=== PATIENT | female | born 1995 | race Caucasian/White ===

== ENCOUNTER 2023-01-07 12:27 | Emergency (ER) | payer BC, SELFPAY ==
[2023-01-07 12:33] VITALS: BP 133/84; PULSE 82; RESP 18; TEMP 36.9; O2SAT 100
--- NOTE | 2023-01-07 12:34 | ED.URI ---
HPI - URI/Sore Throat General Chief Complaint: Upper Respiratory Infection Stated Complaint: Cold Symptoms Source: patient and RN notes reviewed Mode of arrival: ambulatory Limitations: no limitations History of Present Illness HPI Narrative: 27-year-old female presents with concern for cough, nasal congestion, sinus pressure, body aches and fatigue that started 5 days ago. Reports she start taking cough medicine without relief. She reports her daughter was sick but has gotten better. She reports she had a COVID test at home that was negative MD elicited complaint: cough Related Data Allergies Allergy/AdvReac Type Severity Reaction Status Date / Time No Known Allergies Allergy Verified 01/07/23 12:40 Review of Systems Review of Systems: CONSTITUTIONAL: Reports malaise. Denies chills, sweats, or fever. EYES: Denies visual changes, redness, or discharge. ENT: Reports rhinorrhea, congestion, sinus pain. Denies otalgia and sore throat. CARDIOVASCULAR: Denies chest pain, palpitations, or edema. RESPIRATORY: Reports cough. Denies dyspnea. GASTROINTESTINAL: Denies abdominal pain, nausea, vomiting, diarrhea SKIN: Denies rash or itching. MUSCULOSKELETAL: Reports myalgia. NEUROLOGIC: Denies headache. All systems reviewed & are unremarkable except as noted in HPI and below PMFSH Comments At time of signature, agree with nursing past medical, surgical, social and family history. There is no relevant family history pertinent to the presenting complaint Exam Narrative: GENERAL: Well-appearing, well-nourished, and in no acute distress. HEAD: Normocephalic EYES: PERRLA, conjunctivae clear ENT: Nares clear, turbinates edematous and erythematous, clear discharge. Mucous membranes moist. TM pearly mccall with sharp light reflex bilaterally; no tragal tenderness. Oropharynx erythematous without lesions. Tonsils not enlarged and without exudate, no drooling, no hoarseness, no trismus, uvula midline. NECK: Supple. No lymphadenopathy CHEST: Clear to auscultation, breath sounds equal. No wheezing, rhonchi, rales, or stridor. No respiratory distress, speaks in full sentences. Cough noted HEART: Regular rate and rhythm. No murmur heard. SKIN: Warm, dry, no rash. NEURO: Alert and oriented x3. PSYCH: Normal mood and affect Course Course Emergency Course: Patient is aware of diagnosis, understands and agrees to treatment plan. Anticipatory guidance given. Patient agrees to follow-up as directed and is aware of reasons to seek care at the emergency department. Portions of this record may have been created with voice recognition software Level of Care: Express Care Visit Vital Signs Vital signs: Reviewed. MDM - URI/Sore Throat MDM Narrative Medical decision making narrative: Differential diagnosis considered: Khan virus, strep pharyngitis, allergic rhinitis, upper respiratory tract infection, sinusitis, rhinosinusitis, nasopharyngitis. viral pharyngitis, otitis media, otitis externa, pneumonia, bronchitis, viral cough syndrome, viral syndrome, and influenza. Exam findings show no acute concerns or changes; patient is non-toxic appearing and is in no distress. Patient is appropriate for outpatient treatment and follow-up. Lab Data Attestation: I reviewed the patient's lab results. Critical Care Time Critical Care Time Critical Care Time: No Discharge Plan Discharge Clinical Impression: Acute streptococcal pharyngitis Patient Disposition: Home, Self-Care Condition: Stable Additional Instructions: -Take the medication as prescribed. Throw away the toothbrush after 24hours of antibiotic. -Eat and drink things that are easy to swallow, like tea or soup, or popsicles to suck on. -Oral rinses such as: Salt water gargles and/or may use topical anesthetic (eg. Chloraseptic spray) or lozenges to relieve dryness or throat pain). -Take Tylenol and ibuprofen as needed for pain and fever as directed. -Frequent hand washing or hand collazo
== END 2023-01-07 13:09 | disposition home or self-care (01) ==
PROVIDERS: Emergency Provider Nurse Practitioner; PCP Emergency Medicine
DX: J02.0 Streptococcal pharyngitis (principal)
CPT/HCPCS: 87880; 99213; G0463

== ENCOUNTER 2023-04-14 15:53 | Outpatient (CLI) | payer BC, SELFPAY ==
[2023-04-14 16:07] LABS: Hemoglobin 14.1 g/dL (12.0-15.0)
[2023-04-18 04:56] LABS: FSH 4.5 mIU/mL (***); LH 5.7 mIU/mL (***)
[2023-04-19 09:50] LABS: Testosterone Total 37 ng/dL (2-45)
== END 2023-04-14 15:54 | disposition home or self-care (01) ==
LOC: ANHLAB 15:55
PROVIDERS: PCP Emergency Medicine; Visit Provider Student in an Organized Health Care Education/Training Program
DX: N93.9 Abnormal uterine and vaginal bleeding, unspecified (principal)
CPT/HCPCS: 36415; 83001; 83002; 84403; 84443; 85014; 85018

== ENCOUNTER 2025-09-26 07:53 | Outpatient (CLI) | payer BC, SELFPAY ==
--- OUTSIDE RECORDS SUMMARY | 2020-11-15 09:30 | XMS_ITS | Continuity of Care Document ---
Author Organization [facility] Address [address] [place] [address] Phone Care Team Providers Care Supervisor Tunnel Heading Name Role Phone Harjinder Montana MD Unavailable Unavailable Allergies, Adverse Reactions, Alerts Substance Reaction Status Criticality No Known Allergies Active No Inform ation Medications Medication Instructions Dosage Effective Dates (start - stop) Status Comments Percocet 5 mg-325 mg tablet take 1 tablet by oral route every 8 to 12 hours as needed - Active gabapentin 100 mg capsule take 1 capsule by oral route QHS for 1week, then BID 1 week, then TID There after - Active PREVIFEM (unknown strength) Not Available - Active Procedures Procedure Date POSTOP FOLLOW-UP VISIT OFFICE/OUTPATIENT VISIT EST OFFICE/OUTPATIENT VISIT NEW OFFICE/OUTPATIENT VISIT NEW OFFICE/OUTPATIENT VISIT EST OFFICE/OUTPATIENT VISIT NEW Advance Directives Directive Yes / No Effective Date File Name No Information Encounters Encounter Description Practice Location Reason(s) For Visit Diagnoses Date Provider Providers Copied on Encounter [facility], [address], [address], [place] tel:[phone] [facility] Right leg pain 0 Rubén Grande. [address] [facility], [place], [place], [address]. tel:[phone] [facility], [address] [facility] [address], [address], [place] tel:[phone] [facility] Postlaminectom y syndrome, not elsewhere classifiedNeur opathy of right peroneal nerve 0 Darron Rosenberg. [address] [facility] [address], [place], [place], [address]. tel:[phone] [facility], [address] [facility] [address], [place], [address], [place] tel:[phone] [facility] Spondylosis of lumbosacral region without myelopathy or radiculopathyP ostlaminectomy syndrome, not elsewhere classified 0 Darron Rosenberg. [address] [facility] [address], [place], [place], [id number]. tel:[phone] OFFICE/OUTPA TIENT VISIT [facility], [address] [facility] [address], [place], [address], [place] tel:[phone] [facility] Spondylosis of lumbosacral region without myelopathy or radiculopathyR adiculopathy, lumbar regionPostlami nectomy syndrome, not elsewhere classified 0 Darron Rosenberg. [address] [facility], [place], [place], [address]. tel:[phone] OFFICE/OUTPA TIENT VISIT [facility], [address] [facility] [address], [place], [address], [place] tel:[phone] [facility] Body mass index (BMI) 33.0-33.9, adultSpondylos is of lumbar region without myelopathy or radiculopathyS pondylosis of lumbosacral region without myelopathy or radiculopathyP ostlaminectomy syndrome, not elsewhere classified 0 Darron Rosenberg. [address], [place], [place], [address]. tel:[phone] OFFICE/OUTPA TIENT VISIT [facility], [address] [facility] [address], [place], [address], [place] tel:[phone] [facility] Sciatica, left side 5 Ender Sheriff. [address] [place], [place], [address]. tel:[phone] OFFICE/OUTPA TIENT VISIT [facility], [address] [place] [address], [address], [place] tel:[phone] [facility] BACK FOLLOW UP (chief complaint) DOING MUCH BETTER (chief complaint) Low back painPain in thoracic spineSpinal enthesopathy Wilfredo-0 5-201 4 Arturopina Godfrey. [address] [place], [place], [address]. tel:[phone] [facility], [address] [place] [address], [address], [place] tel:[phone] [facility] Low back painLumbosacra l spondylosisSpi nal enthesopathySc iaticaPain in thoracic spine May-0 8-201 4 Arturopina Godfrey. [address] [place], [place], [address]. tel:[phone] [facility], [address] [place] [address], [address], [place] tel:[phone] [facility] Spinal enthesopathyLu mbosacral spondylosisLow back pain Apr-1 0-201 4 Arturo Godfrey. [address] [place], [place], [address]. tel:[phone] [facility], [address] [place] [address], [address], [place] tel:[phone] [facility] SciaticaLow back pain Apr-0 9-201 4 Arturo Godfrey. [address] [place], [place], [address]. tel:[phone] OFFICE/OUTPA TIENT VISIT [facility], [address] [place] [address], [address], [place] tel:[phone] [facility] Low back painSciatica Mar-1 3-201 4 Arturo Godfrey. [address] [place], [place], [address]. tel:[phone] Family History Family Member Type Diagnosis Age At Onset Father Problem hypertension Payers Payer name Insurance type Covered libertarian ID Rubi bridges(s) [facility] Choice/Choice Plus E2 [id number] Social History Type Description Quantity Date Captured Comments Alcohol Use Details Unknown Caffeine Use Details Unknown Tobacco Use Status No Information Smoking Status Never smoker Sex Female Chief Complaint And Reason For Visit No Information Reason For Referral Reason For Referral No Information Plan Of Treatment Date Type Action Status Goal Lifestyle education regardin g diet completed Referral Ordered: INJ FORAMEN EPIDURAL L/S RT spine, lumbar Appointment date/timeframe: 07/10/2020 ordered Referral Ordered: RADEX SPI LUMBOSAC COMPL W/BENDING VIEWS ordered History Of Present Illness Encounter Date Complaint History Of Prese nt Illness No Information Functional Status Date Functional Assessmen t No Information Instructions Date Instruction Additional Infor mation Lifestyle education regarding di et Related to Body mass index (BMI) 33.0-33.9, adult Giving encouragement to exercise Related to Body mass index (BMI) 33.0-33.9, adult Physical activity counseling Rel ated to Dietary Surveillance Counseling Physical activity counseling Rel ated to Dietary Surveillance Counseling Physical activity counseling Rel ated to Dietary Surveillance Counseling Assessments Type Assessment Date assessment Right leg pain Patient Care Teams Name Effective Dates (start - stop) Status Members No Information
--- OUTSIDE RECORDS SUMMARY | 2025-09-26 08:04 | XMS_ITS | Clinical Summary ---
Author Organization [facility] Address [address] [place] [address] Phone Care Team Providers Care Newspaper Distributor Supervisor Name Role Phone Unavailable Primary Care Provider Unavailabl e Allergies No known active allergies Medications cephALEXin (KEFLEX) 500 mg capsule Take 500 mg by mouth 2 times daily. Active neomycin sulf/bacitracin /poly (NEOMYCIN-BACIT RACIN-POLYMYXIN OP) by Ophthalmic route. Placed 3-4 drops in LEFT 3-4 TIMES PER DAY Active oxyCODONE-aceta minophen (PERCOCET) 5-325 mg tabletIndicatio ns:DDD (degenerative disc disease), lumbar Take 1 Tablet by mouth every 4 hours as needed for severe pain. Max Daily Amount: 6 Tablets 42 Tablet 10/13/2021 1:21 PM PUMPING PLANT OPERATOR 1 Active diazePAM (Valium) 5 mg tabletIndicatio ns:DDD (degenerative disc disease), lumbar Take 1 Tablet (5 mg) by mouth every 6 hours as needed for Spasm. 42 Tablet 10/13/2021 1:21 PM PUMPING PLANT OPERATOR 1 Active Active Problems Problem Noted Date Diagnosed Date DDD (degenerative disc disease), lumbar 10/04/20 21 Encounters Date Type Department Care Team Description 08/15/2025 External Device Data [facility] ABSTRACTION Provider, Abstract 07/18/2025 External Device Data [facility] ABSTRACTION Provider, Abstract 07/05/2025 External Device Data [facility] ABSTRACTION Provider, Abstract from Last 3 Months Social History Tobacco Use Types Packs/Day Years Used Date Smoking Tobacco: Never Smokeless Tobacco: Never Alcohol Use Standard Drinks/Week Comments Yes 2 (1 standard drink = 0.6 oz pur e alcohol) Comments No Sex and Gender Information Value Date Recorded Sex Assigned at Not on file Legal Sex Female 5:05 AM PUMPING PLANT OPERATOR Gender Identity Not on file Sexual Orientation Not on file Last Filed Vital Signs Vital Sign Reading Time Taken Comments Blood Pressure 110/65 10/13/2021 12:05 PM PUMPING PLANT OPERATOR Pulse 89 10/13/2021 12:05 PM PUMPING PLANT OPERATOR Temperature 36.7 C (98.1 F) 10/13/2021 12:05 PM PUMPING PLANT OPERATOR Respiratory Rate 16 10/13/2021 12:05 PM PUMPING PLANT OPERATOR Oxygen Saturation 95% 10/13/2021 12:05 PM PUMPING PLANT OPERATOR Inhaled Oxygen Concentration - - Weight 91.6 kg (202 lb) 10/11/2021 5:48 AM PUMPING PLANT OPERATOR Height 167.6 cm (5' 6) 10/11/2021 5:48 AM PUMPING PLANT OPERATOR Body Mass Index 32.6 10/11/2021 5:48 AM PUMPING PLANT OPERATOR Plan of Treatment Health Maintenance Due Date Last Done Comments DTAP/TDAP/TD VACCINES (1 - Tdap) 2013 HEPATITIS B VACCINES (1 of 3 - 19+ 3-dose series) 09/30 HPV/Cotest (21-29) 2015 HPV VACCINES (1 - 3-dose SCDM series) 2021 CERVICAL CANCER SCREENING 2024 HPV/Cotest (30-65) 2024 PAP SMEAR 2024 INFLUENZA VACCINE (#1) 2025 Medical Devices Implanted Type Area Alteration Manager Device Identifier Shelf Expiration Date Model / Serial / Lot Infuse Protein Kit Lg [id number] - [id number] Implanted:Qt y: 1 on 10/11/2021 by Jaziel Handley MD at [facility] Biological N/A: Spine Lumbar MEDTRONIC- SOFAMOR DANEK [id number] 02/27/2023 [id number] / / [id number] Clip Ligating Horizon Med Ti [id number] - Csc - [id number] Implanted:Qt y: 1 on 10/11/2021 by Austin Moralez MD at [facility] Clip N/A: Abdomen TELEFLEX- WECK CLOSURE SYS 12/04/2025 [id number] / / [id number] Clip Ligating Horizon Med Ti [id number] - Csc - [id number] Implanted:Qt y: 1 on 10/11/2021 by Austin Moralez MD at [facility] Clip N/A: Abdomen TELEFLEX- WECK CLOSURE SYS 12/04/2025 [id number] / / [id number] Hemostatic Surgiflo 8ml W/Thrombin 2994 - [id number] Implanted:Qt y: 1 on 04/04/2020 by Jaziel Handley MD at [facility] Hemostatic Left: Spine Lumbar J&J- ETHICON INC 12/30/2020 2994 / / [id number] Hemostatic Surgiflo 8ml W/ Thrombin 2994 - [id number] Implanted:Qt y: 1 on 10/11/2021 by Jaziel Handley MD at [facility] Hemostatic N/A: Spine Lumbar J&J- ETHICON INC 01/27/2023 2994 / / [id number] Antegra Plate 41 Mm Lumbar Implanted:Qt y: 1 on 10/11/2021 by Jaziel Handley MD at [facility] Plate N/A: Spine Lumbar SYNTHES-STRATEC- SPINAL 04.102.141 / / LOAD # 17 STERILIZED OCT 10, 2021 Description:All Synthes cerv ical hardware was processed on requisition, [id number]. Screw Canc Loc 6.5x24mm - [id number] Implanted:Qt y: 4 on 10/11/2021 by Jaziel Handley MD at [facility] Screw N/A: Spine Lumbar J&J- DEPUY SYNTHES 024 / / LOAD #17 STERILIZED OCT 10, 2021 Allograft Vivigen Matrix 10ml Bl-1500-003 - [id number] Implanted:Qt y: 1 on 10/11/2021 by Jaziel Handley MD at [facility] Tissue N/A: Spine Lumbar LIFENET 09/10/2022 BL-1500-003 / [id number] / Spacer Luminary Cc-Alif [id number]- 32mm Ant Freeze Dried [id number] - [id number] Implanted:Qt y: 1 on 10/11/2021 by Jaziel Handley MD at [facility] Tissue N/A: Spine Lumbar MUSCULOSKELETAL TRANSPLANT FOU [id number] 06/14/2023 [id number] / [id number] / Insurance [employer] CHOICE RX OPTUM RX Member Subscriber Plan / Payer (Ef fective for All Dates) Name:Tona Hamilton Relation to Subscriber:Self Name:Tona Hamilton Payer ID:Not on file Group ID:[id number] Type:RX Commercial Address: [address] [employer] CHOICE Advance Directives For more information, please contact: [phone] * Full Code (Latest Code Status on File) Date Activated Date Inactivated Comments 10/11/2021 1:39 PM 10/13/2021 5:36 PM * Full Code Date Activated Date Inactivated Comments 10/11/2021 5:43 AM 10/11/2021 1:39 PM * Full Code Date Activated Date Inactivated Comments 01/02/2021 10:52 AM 01/02/2021 4:04 PM * Full Code Date Activated Date Inactivated Comments 04/04/2020 7:32 AM 04/04/2020 4:42 PM * Full Code Date Activated Date Inactivated Comments 04/04/2020 6:47 AM 04/04/2020 7:32 AM
--- OUTSIDE RECORDS SUMMARY | 2025-09-26 08:04 | XMS_ITS | Encounter Summary ---
Author Organization [facility] Address 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 Gender Identity Not on file Sexual Orientation Not on file documented as of this encounter Plan of Treatment Not on file documented as of this encounter Procedures Procedure Name Priority Date/Time Associated Diagnosis Comments XR LUMBAR SPINE 1 VW Routine 07/17/2009 2:30 PM CDT HEMOGLOBIN AND HEMATOCRIT Stat 07/17/2009 1:10 PM CDT POC , URINE Routine 07/17/2009 1:10 PM CDT TYPE AND SCREEN Routine 07/17/2009 12:41 PM CDT documented in this encounter Results * XR LUMBAR SPINE 1 VW (07/17/2009 2:30 PM CDT) Anatomical Region Laterality Modality Spine Other 07/17/2009 2:30 PM CDT Narrative 07/17/2009 5:03 PM CDT [place] [id number] [place], [place] [address] Admit Date: 07/17/2009 ERASTO DOROTEO Guerra Sex: F Admit Prov: QUINCY WEBB Date: 1995 Primary Care Prov: KERLINE TIWARI CMRN: [id number] Room: SURG-A SSN: [id number] [facility] Ordering Prov: N/A Accession Number: [id number] Interpretation LUMBAR SPINE, PORTABLE LATERAL PROJECTION IN THE OPERATING ROOM, 07/17/2009. CLINICAL HISTORY: Herniated nucleus pulposus at L4-L5 on the left FINDINGS: Portable crosstable examination of the lumbar spine on 07/17/2009 at 1440 hours reveals a localizing surgical instrument superimposing the base of the spinous process of L5 assuming normal anatomy. A surgical retractor is present posterior to the L4-L5 interspace. The anterior aspects of the vertebral bodies of L3 through L5 are not completely included for evaluation. Vertebral body height and intervertebral disc space width are satisfactorily maintained. IMPRESSION: Localizing instrument at the L5 level. . Dictated by: SYDNEY RIVERO 07/17/2009 15:24 Electronically signed by: SYDNEY RIVERO 07/17/2009 17:01 Transcribed: 07/17/2009 16:23 AMK Procedure Note Provider, Historical - 07/17/2009 [place] [address] [place], [place] [address] Admit Date: 07/17/2009 DOROTEO SCHULZ Sex: F Admit Prov: QUINCY WEBB Date:1995 Primary Care Prov: KERLINE TIWARI CMRN: [id number] Room: SURG-A SSN: [id number] IMAGING SERVICES Ordering Prov: N/A Interpretation LUMBAR SPINE, PORTABLE LATERAL PROJECTION IN THE OPERATING ROOM,07/17/2009. CLINICAL HISTORY: Herniated nucleus pulposus at L4-L5 on the left FINDINGS: Portable crosstable examination of the lumbar spine on07/17/2009 at 1440 hours reveals a localizing surgical instrument superimposingthe base of the spinous process of L5 assuming normal anatomy. Asurgical retractor is present posterior to the L4-L5 interspace. Theanterior aspects of the vertebral bodies of L3 through L5 are not completely included for evaluation. Vertebral body height and intervertebraldisc space width are satisfactorily maintained. IMPRESSION: Localizing instrument at the L5 level. . Dictated by: SYDNEY RIVERO 07/17/2009 15:24 Electronically signed by: SYDNEY RIVERO 07/17/2009 17:01 Transcribed: 07/17/2009 16:23 AMK us Quincy Webb MD DIAGNOSTIC IMAGING ORDERABLES F inal Result * POC , URINE (07/17/2009 1:10 PM CDT) CLIA LICENSE [id number] [facility] , URINE POC Negative Negative [facility] Urine specimen (specimen) 07/17/2009 1:10 PM CDT 07/17/2009 1:10 PM CDT us Quincy Webb MD POINT OF CARE TESTING Final Res ult Performing Organization Address [facility] Co de Phone Number [facility] CLIA# [id number] [address] [facility] [place] [place] [address] * HEMOGLOBIN AND HEMATOCRIT (07/17/2009 1:10 PM CDT) HEMOGLOBIN 14.5 11.8 - 14.8 g/dL [facility] HEMATOCRIT 42.4 35.5 - 44.0 % [facility] Blood specimen (specimen) 07/17/2009 1:10 PM CDT 07/17/2009 1:33 PM CDT us Quincy Webb MD HEMATOLOGY ORDERABLES Final Res ult Performing Organization Address City/[facility]/ZIP Co de Phone Number [facility] CLIA# [id number] [address] [place] [address] * TYPE AND SCREEN (07/17/2009 12:41 PM CDT) HISTORY CHECK No Historical ABO/Rh [facility] SPECIMEN LIFE 3 days from drawdate [facility] ABO/RH TYPE O Positive [facility] ANTIBODY SCREEN Negative [facility] Blood specimen (specimen) 07/17/2009 12:41 PM CDT Quincy Webb MD BLOOD BANK ORDERABLES Edited INTERFACE SYSTEM Refer to clinic/hospital department [facility] CLIA# [id number] [address] [place] [address] documented in this encounter Visit Diagnoses Not on filedocumented in this encounter Additional Health Concerns Infection Onset Date Last Indicated Resolved Time R/O COVID-19 04/01/2020 04/01/2020 04/02/2020 10:0 7 AM CDT documented as of this encounter
--- OUTSIDE RECORDS SUMMARY | 2025-09-26 08:04 | XMS_ITS | Patient Health Record ---
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 Name Role Phone Matthew Vazquez Primary Care Provider Allergies No Known Allergies Reason For Referral Reason posterior knee mass, approximately 1 cm Diagnosis 1 Leg mass, right (R22 .41) Referral Organization [facility] Referring Provider First Name Matthew Referring Provider Last Name George Referring Provider Speciality Family Med icine Referred Provider Specialty Radiology Procedure 1 US XTR NON-VASC LMTD ([id number]) General Notes Dorothy Mackey 01/2025 09:50:46 AM >Imaging Complete, Results scanned to Xray imaging document Clinical Notes Matthew Vazquez 08/2025 08:15:43 AM >[facility] Referral Priority Routine Medications Medication SIG (Take, Route, Frequency, Duration) Notes Start Date End Date Status Albuterol Sulfate 108 (90 Base) MCG/ACT 1 puff as needed Inhalation every 4 hrs Active Social History Tobacco Use: Social History Observation Description Date Details (start date - stop date) Never Smoker NA - NA Tobacco Control Question Answer Notes Tobacco use: Nonsmoker AUDIT-C (Standard) Question Answer Notes Did you have a drink contain ing alcohol in the past year? Yes How often did you have a dri nk containing alcohol in the past year? Monthly or less (1 point) How many drinks did you have on a typical day when you were drinking in the past year? 1 or 2 drinks (0 point) How often did you have six o r more drinks on one occasion in the past year? Never (0 point) Points 1 Interpretation Negative Vital Signs Heart Rate 79 /min 05/19/2025 Temperature 98.4 degrees Fahrenheit 05/19/2025 Respiratory Rate 16 /min 05/19/2025 Height-cm 167.64 cm 05/19/2025 Oximetry 99 % 05/19/2025 Blood pressure diastolic 93 mm Hg 05/19/2025 Weight-kg 99.52 kg 05/19/2025 Height 66 in 05/19/2025 Blood pressure systolic 157 mm Hg 05/19/2025 Weight 219.4 lbs 05/19/2025 BMI 35.41 kg/m2 05/19/2025 Encounters Encounter Location Date Provider Diagnosis [facility] [address] [place] [address] 03/22/2025 Matthew Vazquez Pneumonia J18.9 [facility] [address] [place] [address] 03/27/2025 Matthew Vazquez Pneumonia J18.9 [facility] [address] [place] [address] 03/30/2025 Matthew Vazquez Pneumonia J18.9 [facility] [address] [place] [address] 05/09/2025 Matthew Vazquez Leg mass, right R22.41 [facility] [address] [place] [address] 05/19/2025 Matthew Vazquez Rash R21 [facility] [place] [address] [place] [address] 05/23/2025 Matthew Vazquez Assessments Encounter Date Diagnosis (ICD Code) Assessment Notes Treatment Notes Treatment Clinical Notes Section Notes 03/22/2025 Pneumonia (ICD-10 - J18.9) please take the antibiotic and prednisone as prescribed. Your symptoms should begin improving within 48 hours. It is normal for the cough did persist for 4-6 weeks as long as the rest of your symptoms are gradually improving. Please monitor and seek medical attention immediately for any worsening symptoms including body aches, shortness of breath, fever. Recommend fluid and rest. Please follow up next week Thursday. 03/27/2025 Pneumonia (ICD-10 - J18.9) I extended the azithromycin p.o. once daily for 3 more days. Continue the prednisone as prescribed. Please closely monitor and return to clinic for worsening symptoms including fever, shortness of breath, body aches. please follow-up on morning. Crackles are overall improved on physical exam, but some persist in the right lower quadrant. Extended azithromycin. Notify patient that the medication continues to work for an additional 2 days after stopping. We will follow-up on , I notified patient I am off on Thursday and Thursday03/30/2025 Pneumonia (ICD-10 - J18.9) Continue azithromycin for 1 more day. Discussed that the medication continues to work for 48-72 hours after stopping. Recommend patient closely monitor and seek medical attention for worsening symptoms including fever, body aches, shortness of breath. Follow up as needed. 05/09/2025 Leg mass, right (ICD-10 - R22.41) I suspect this is a epidermoid or Ganglion cyst. I recommend monitoring for signs of infection including redness, tenderness, swelling, pain, discharge, fever, body aches. Ultrasound ordered as discussed. please complete at [facility]. Please send me a message a few days after completing the ultrasound if you have not heard back from this office. 05/19/2025 Rash (ICD-10 - R21) I suspect you have seborrheic dermatitis. I recommend using the ketoconazole shampoo 2 to 3 times a week for 4 weeks, we can extend the use if it is helping. The shampoo should be left on for 3-5 minutes before rinsing off. Please try to allow time for your hair to dry off prior to wearing any hats or prior to going to bed. Please return to clinic for any worsening symptoms. Follow up as needed. Plan Of Treatment No Information Insurance Providers Payer Name Payer Address Payer Phone Subscriber Number Group Number Insured Name Patient Relationship to Insured Coverage Start Date Coverage End Date [facility] [address] [place] [address] [id number] Tona Hamilton Self - patient is the insured 4 [employer] [address] [place] [address] [id number] Tona Hamilton Self - patient is the insured 4 4 Medical (General) History Surgical History Surgery Date(Month/Year) Spinal Fusion 2020 Discectomy 2019 Discectomy 2008
[2025-09-26 09:44] LABS: Thyroid Stimulating Hormone 1.230 uIU/mL (0.465-4.680)
[2025-09-26 09:46] LABS: Hemoglobin A1C 5.3 % (<5.7)
[2025-09-27 09:09] LABS: FSH 2.7 mIU/mL (.)
[2025-09-27 11:08] LABS: LH 7.0 mIU/mL (.)
[2025-09-29 12:08] LABS: Free Testosterone (Direct) 2.7 pg/mL (0.0-4.2)
[2025-10-01 15:08] LABS: Estradiol, Sensitive 80.8 pg/mL (.)
== END 2025-09-26 07:54 | disposition home or self-care (01) ==
LOC: ANHLAB 07:57
PROVIDERS: PCP Physician Assistant; Visit Provider Student in an Organized Health Care Education/Training Program
DX: N92.6 Irregular menstruation, unspecified (principal)
CPT/HCPCS: 36415; 82670; 83001; 83002; 83036; 83525; 83527; 84144; 84402; 84403; 84443